=== PATIENT | female | born 1975 | race Caucasian/White ===

== ENCOUNTER 2025-07-07 09:14 | Inpatient (IN) ==
--- NOTE | 2025-06-12 13:55 | PAT Medication Instructions ---
Medication Instructions Date of Service June 12, 2025 Home Medications albuterol 90 mcg/actuation aerosol inhaler 90 mcg inhalation Q2H PRN Shortness Of Breath Or Wheezing atorvastatin 20 mg tablet (Lipitor) 20 mg PO HS budesonide 160 mcg-glycopyr 9 mcg-formot 4.8 mcg/actuation HFA inhaler (Breztri Aerosphere) 2 inh inhalation Q12H duloxetine 30 mg capsule,delayed release 30 mg PO HS duloxetine 60 mg capsule,delayed release 60 mg PO HS hydroxychloroquine 200 mg tablet 200 mg PO BID metformin 500 mg tablet,extended release 24 hr 500 mg PO QPM methocarbamol 750 mg tablet 750 mg PO TID PRN muscle spasms metoprolol tartrate 50 mg tablet 100 mg PO BID montelukast 10 mg tablet (Singulair) 10 mg PO HS omeprazole 40 mg capsule,delayed release 40 mg PO QPM tezepelumab-ekko 210 mg/1.91 mL (110 mg/mL) subcutaneous pen injector (Tezspire) 210 mg subcut MONTHLY tirzepatide 12.5 mg/0.5 mL subcutaneous pen injector (Mounjaro) 12.5 mg subcut WK tramadol 50 mg tablet 50 mg PO BID PRN Pain trazodone 50 mg tablet 50 mg PO HS PRN Insomnia ASK your prescriber and surgeon hydroxychloroquine 200 mg tablet 200 mg PO BID tezepelumab-ekko 210 mg/1.91 mL (110 mg/mL) subcutaneous pen injector (Tezspire) 210 mg subcut MONTHLY STOP taking at least 7 days before surgery tirzepatide 12.5 mg/0.5 mL subcutaneous pen injector (Mounjaro) 12.5 mg subcut WK Take morning of surgery With a small sip of water, OTHERWISE NOTHING TO EAT OR DRINK AFTER MIDNIGHT: albuterol 90 mcg/actuation aerosol inhaler 90 mcg inhalation Q2H PRN Shortness Of Breath Or Wheezing (use if needed; please bring with you to hospital day of surgery if possible) budesonide 160 mcg-glycopyr 9 mcg-formot 4.8 mcg/actuation HFA inhaler (Breztri Aerosphere) 2 inh inhalation Q12H methocarbamol 750 mg tablet 750 mg PO TID PRN muscle spasms (if needed) metoprolol tartrate 50 mg tablet 100 mg PO BID tramadol 50 mg tablet 50 mg PO BID PRN Pain (if needed) Take evening before surgery albuterol 90 mcg/actuation aerosol inhaler 90 mcg inhalation Q2H PRN Shortness Of Breath Or Wheezing (if needed) atorvastatin 20 mg tablet (Lipitor) 20 mg PO HS budesonide 160 mcg-glycopyr 9 mcg-formot 4.8 mcg/actuation HFA inhaler (Breztri Aerosphere) 2 inh inhalation Q12H duloxetine 30 mg capsule,delayed release 30 mg PO HS duloxetine 60 mg capsule,delayed release 60 mg PO HS metformin 500 mg tablet,extended release 24 hr 500 mg PO QPM methocarbamol 750 mg tablet 750 mg PO TID PRN muscle spasms (if needed) metoprolol tartrate 50 mg tablet 100 mg PO BID montelukast 10 mg tablet (Singulair) 10 mg PO HS omeprazole 40 mg capsule,delayed release 40 mg PO QPM tramadol 50 mg tablet 50 mg PO BID PRN Pain (if needed) trazodone 50 mg tablet 50 mg PO HS PRN Insomnia (if needed) Other Notes If you have any questions please call us at [phone] or [phone] or [phone] or [phone]
--- NOTE | 2025-06-15 11:48 | Anesthesiology Consultation ---
Date of Service June 15, 2025 Assessment & Plan (1) Encounter for pre-operative examination: Chart Review Chart Review: Acceptable Risk for Surgery (pending surgeon ordered cardio clearance and Holter monitor/stress testing if available) and Patient seen in Pre Admission Testing - Awaiting cardio clearance (06/27/25) ([facility]- Dr Hampton and Dr Bishop); please also obtain 03/2025 Holter monitor (if available) and 2021 stress testing - Check BSG AM DOS - Check test AM DOS - Patient informed by nursing to stop Mounjaro 7 days prior to surgery. Last dose of Mounjaro scheduled 06/28/25. Will be off Mounjaro x 9 days prior to DOS on 07/07/25 Per PAT appt on 06/15/25, no recent illness/disease exposures, illness related symptoms, or recent illness/disease positive tests. Will leave to surgeon's discretion if preop Covid testing needed PCP Clearance letter 06/10/25= "Low to moderate risk" for complications for proposed surgery. "Please see attached note. Cardiac clearance scheduled with cardiology 06/27/25" PCP office visit 06/08/25= "Preoperative examination... Functional capacity >4 METS. According to RCRI, the number of risk factors stratifies the patient to Class I, which carries with it a 0.6% risk of major CV complications...however, the RCRI likely under estimates the patient's true cardiac risk given her history of BMI of 40.5 and hx of severe asthma... these risks along with the risk of perioperative stroke discussed with the patient... patient wishes to proceed... 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 Medication instructions provided according to the PAT guidelines. History Surgery Operation Date: 07/07/25 09:05 Proposed Procedures p L5-S1 Decompression and Fusion - Killian Mckeon DO Height/Weight Height: 5 ft 4 in Weight: 105.9 kg Allergies Allergy/AdvReac Type Severity Reaction Status Date / Time cephalexin [From Keflex] Allergy Severe Anaphylaxis Verified 06/08/25 15:01 clindamycin Allergy Severe Anaphylaxis Verified 06/08/25 15:01 COVID-19 (SARS-CoV-2) Allergy Severe Anaphylaxis Verified 06/08/25 15:01 vaccine, shannon doxycycline Allergy Severe Anaphylaxis Verified 06/08/25 15:01 rashmi Allergy Severe Anaphylaxis Verified 06/08/25 15:01 papaya Allergy Severe Anaphylaxis Verified 06/08/25 15:01 Penicillins Allergy Severe Anaphylaxis Verified 06/08/25 15:01 alvin Allergy Severe Anaphylaxis Verified 06/08/25 15:01 sulfamethoxazole Allergy Severe Anaphylaxis Verified 06/08/25 15:01 [From Bactrim] sunflower seed Allergy Severe Anaphylaxis Verified 06/08/25 15:01 tree nut Allergy Severe Anaphylaxis Verified 06/08/25 15:01 trimethoprim [From Bactrim] Allergy Severe Anaphylaxis Verified 06/08/25 15:01 chlorhexidine Allergy Intermediate Redness, Verified 06/08/25 15:01 Swelling, Blisters furosemide [From Lasix] Allergy Intermediate Lips Verified 06/08/25 15:01 Swelling, Blisters in Mouth Additional Notes: Surgeon informed of chlorhexidine allergy- will leave to surgeon's discretion regarding preop cleaning/prepping instructions Medications Home Medications Medication Instructions Recorded Confirmed Last Taken albuterol 90 mcg/actuation aerosol 90 mcg inhalation Q2H PRN 06/08/25 06/08/25 Unknown inhaler Shortness Of Breath Or Wheezing atorvastatin 20 mg tablet (Lipitor) 20 mg PO HS 06/08/25 06/08/25 Unknown budesonide 160 mcg-glycopyr 9 2 inh inhalation Q12H 06/08/25 06/08/25 Unknown mcg-formot 4.8 mcg/actuation HFA inhaler (Breztri Aerosphere) duloxetine 30 mg capsule,delayed 30 mg PO HS 06/08/25 06/08/25 Unknown release duloxetine 60 mg capsule,delayed 60 mg PO HS 06/08/25 06/08/25 Unknown release hydroxychloroquine 200 mg tablet 200 mg PO BID 06/08/25 06/08/25 Unknown metformin 500 mg tablet,extended 500 mg PO QPM 06/08/25 06/08/25 Unknown release 24 hr methocarbamol 750 mg tablet 750 mg PO TID PRN muscle spasms 06/08/25 06/08/25 Unknown metoprolol tartrate 50 mg tablet 100 mg PO BID 06/08/25 06/08/25 Unknown montelukast 10 mg tablet 10 mg PO HS 06/08/25 06/08/25 Unknown (Singulair) omeprazole 40 mg capsule,delayed 40 mg PO QPM 06/08/25 06/08/25 Unknown release tezepelumab-ekko 210 mg/1.91 mL 210 mg subcut MONTHLY 06/08/25 06/08/25 05/31/25 (110 mg/mL) subcutaneous pen injector (Tezspire) tirzepatide 12.5 mg/0.5 mL 12.5 mg subcut WK 06/08/25 06/08/25 06/07/25 subcutaneous pen injector (Mounjaro) tramadol 50 mg tablet 50 mg PO BID PRN Pain 06/08/25 06/08/25 Unknown trazodone 50 mg tablet 50 mg PO HS PRN Insomnia 06/08/25 06/08/25 Unknown Past Medical History Medical History (Updated 06/16/25 @ 09:25 by Breann Taveras PA-C) Acid reflux well controlled and stable Asthma [facility] - prn albuterol inhaler - Beztri/Tezspire breathing stable and well controlled Diabetes mellitus, type 2 Oral/Weekly Injectable Family history of cardiac disorder Brother - hx of HOCM Sister- CABG at age 45 Patient follows routinely with cardio (no current CAD or HOCM) History of lipoma chest - excised x5 HLD (hyperlipidemia) Per PCP records Hypertension Keratoconus of both eyes Follows with [facility] Lupus (systemic lupus erythematosus) [facility] - stable Migraines "very few" Multiple drug allergies Multiple food allergies Teeth grinding HS mouth splint Work related injury DOI 08/17/24 - reason for procedure 07/07/25 Exercise / Class Metabolic Activity II 4-5 Yardwork/Stairs/Walk up hill (one flight of stairs - no chest pain or SOB ; limited activities due to back pain ) Past Surgical History Surgical History History of arthroscopy of left knee History of section x1 History of cholecystectomy 01/2024 History of colonoscopy History of eye surgery Left - Cross linking History of local excision of skin lesion x5 lipoma chest wall 07/2023 History of wisdom tooth extraction Past Anesthesia History No Hx of Anesthesia Complications (with exception to remote history of high temperature 4-5 days post op from (had epidural)- possible incision infection ) and No Family Hx of Anesthesia Complications History of PONV No Hx of PONV and Hx of Motion Sickness Social History Smoking Status: Never smoker Do You Dip or Chew Tobacco: No Hx Alcohol Use: No Hx Substance Use: No substance use type: does not use Review of Systems - Hx of sleep study- passed sleep study with no definitive KATY Patient denies chest pain, shortness of breath, dyspnea on exertion, cough, wheezing, palpitations. No hx of seizures, stroke, NE. No hx of blood clots or blood transfusions Physical Exam Vital Signs VITALS BP 126/81 P 75 TEMP 97.4 SP02 100% RESP 16 Constitutional no acute distress ENMT Mouth: no TMJ clicking Thyromental Distance: > or= 3.5 Finger Breadths (3.5) Mallampati Class: I Missing molars Neck neck extension not limited Respiratory normal respiratory effort; no respiratory distress Auscultation: lungs clear to auscultation bilaterally; no wheezes Cardiovascular Rate/Rhythm: regular rate and regular rhythm Heart Sounds: no murmur Vessels: no carotid bruit Musculoskeletal Spine: no pain with cervical ROM Extremities: extremities normal to inspection Psychiatric Orientation: alert Lab Results Anesthesia Preop Results Results Anesthesia Widget: WBC 9.65 K/ul (4.8-10.8) 06/15/25 Hgb 12.7 g/dl (12.0-16.0) 06/15/25 Hct 37.1 % (37.0-47.0) 06/15/25 Plt 300 K/uL (130-400) 06/15/25 Na 141 mmol/L (136-145) 06/15/25 K 3.9 mmol/L (3.5-5.1) 06/15/25 Cl 105 mmol/L (98-107) 06/15/25 CO2 29 mmol/L (21-32) 06/15/25 BUN 8 mg/dl (6-23) 06/15/25 Creat 0.79 mg/dl (0.6-1.2) 06/15/25 Glucose Level 91 mg/dl (70-99(Fasting)) 06/15/25 PT 10.5 Seconds (9.0-12.0) 06/15/25 PTT 27 Seconds (21-31) 06/15/25 INR 1.0 (0.9-1.1) 06/15/25 HA1c 5.3 % (4.5-5.6) 06/15/25 Urine Color Yellow 06/15/25 Urine Appearance Clear (Clear) 06/15/25 Urine pH 8.0 (4.5-7.5) H 06/15/25 Urine Specific Sharon 1.013 (1.000-1.030) 06/15/25 Urine Protein Negative (Negative) 06/15/25 Urine Glucose (UA) Negative (Negative) 06/15/25 Urine Ketones Negative (Negative) 06/15/25 Urine Blood Negative (Negative) 06/15/25 Urine Nitrite Negative (Negative) 06/15/25 Urine Bilirubin Negative (Negative) 06/15/25 Urine Urobilinogen Negative (Negative) 06/15/25 Urine Leukocyte Esterase 3+ (Negative) H 06/15/25 Urine WBC (Auto) 11-20 /hpf (0-5) H 06/15/25 Urine RBC (Auto) 6-10 /hpf (0-2) H 06/15/25 Urine Hyaline Casts (Auto) 0-2 /lpf (0-2) 06/15/25 Urine Epithelial Cells (Auto) 6-10 /hpf (0-2) H 06/15/25 Urine Bacteria (Auto) 1+ (None Seen) H 06/15/25 Blood Type A Positive 06/15/25 Antibody Screen NEGATIVE 06/15/25 Testing Laboratory Results Abnormal UA- urine culture pending- surgeon's office informed- will leave to surgeon's discretion with how to proceed Electrocardiogram Date: 06/15/25 Findings: + NSR @ (75bpm) Nonspecific T wave abnormality Chest X-Ray Date: 06/15/25 Findings: + NAD FINDINGS: Heart size and pulmonary vasculature are normal. Lungs are hyperexpanded. No consolidation or pleural effusion. Echocardiogram Date: 04/19/25 EF: 55-60% LV Function: normal Other Findings: no LVH Valvular Disease: + no significant valvular disease Normal RV size and function
[2025-07-07] MEDS ORDERED: Nursing to Pharmacy Communication SCH ×2 (09:15→21:30)
[2025-07-07] MEDS: LR 15ML/HR IV SCH (09:39)
[2025-07-07] MEDS: VANCOMYCIN HCL 1,500 MG in SODIUM CHLORIDE 0.9% 500 ML IV SCH ×2 (09:39→22:58)
[2025-07-07] MEDS: LR 60ML/HR IV SCH (09:43)
[2025-07-07] MEDS: GABAPENTIN 900 MG DOSE PO SCH (10:01)
[2025-07-07] MEDS ORDERED: ATROPINE SULFATE 0.1 MG/ML 10ML SYR IV PRN (10:29)
[2025-07-07] MEDS ORDERED: DROPERIDOL 5 MG/2 ML VIAL IV PRN (10:29)
[2025-07-07] MEDS: ALBUT/IPRATROP 3MG/0.5MG NEB 3 ML VIAL NEB STA (10:33)
[2025-07-07] MEDS ORDERED: DEXAMETHASONE SOD INJ 4 MG/ML VIAL ONE (10:38)
[2025-07-07] MEDS ORDERED: PROPOFOL IV EMULSION 10 MG/ML 20 ML VIAL IV ONE (10:38)
[2025-07-07] MEDS ORDERED: ROCURONIUM BROMIDE 10 MG/ML 5 ML VIAL IV ONE (10:38)
[2025-07-07] MEDS ORDERED: ONDANSETRON INJ 2 MG/ML 2 ML VIAL ONE (10:38)
[2025-07-07] MEDS ORDERED: LIDOCAINE 2% 2 ML VIAL/AMP(20MG/ML) INFIL ONE (10:38)
[2025-07-07] MEDS ORDERED: MIDAZOLAM HCL 1 MG/ML 2ML VIAL ONE (10:39)
--- NOTE | 2025-07-07 10:45 | History & Physical Bridge Note ---
Date of Service July 07, 2025 History & Physical Bridge Note I have examined the patient, reviewed the History & Physical and in the interval since the performance of the History & Physical I have noted the following changes of clinical significance: no changes noted
--- NOTE | 2025-07-07 10:46 | History & Physical Report ---
Date of Service July 07, 2025 Assessment & Plan (1) Lumbosacral spondylosis with radiculopathy: Plan: L5-S1 decompression and fusion History of Present Illness Chief Complaint: Back and leg pain Primary Care Provider: Starla Chan, GRACE-C This is a 49-year-old female presents chronic persistent back and leg pain after failing course of nonoperative care she is here for surgical intervention. Allergies Allergy/AdvReac Type Severity Reaction Status Date / Time cephalexin [From Keflex] Allergy Severe Anaphylaxis Verified 07/07/25 09:35 clindamycin Allergy Severe Anaphylaxis Verified 07/07/25 09:35 COVID-19 (SARS-CoV-2) Allergy Severe Anaphylaxis Verified 07/07/25 09:35 vaccine, shannon doxycycline Allergy Severe Anaphylaxis Verified 07/07/25 09:35 rashmi Allergy Severe Anaphylaxis Verified 07/07/25 09:35 papaya Allergy Severe Anaphylaxis Verified 07/07/25 09:35 Penicillins Allergy Severe Anaphylaxis Verified 07/07/25 09:35 alvin Allergy Severe Anaphylaxis Verified 07/07/25 09:35 sulfamethoxazole Allergy Severe Anaphylaxis Verified 07/07/25 09:35 [From Bactrim] sunflower seed Allergy Severe Anaphylaxis Verified 07/07/25 09:35 tree nut Allergy Severe Anaphylaxis Verified 07/07/25 09:35 trimethoprim [From Bactrim] Allergy Severe Anaphylaxis Verified 07/07/25 09:35 chlorhexidine Allergy Intermediate Redness, Verified 07/07/25 09:35 Swelling, Blisters furosemide [From Lasix] Allergy Intermediate Lips Verified 07/07/25 09:35 Swelling, Blisters in Mouth Home Medications Medication Instructions Recorded Confirmed Type albuterol 90 mcg/actuation aerosol 90 mcg inhalation Q2H PRN 06/08/25 07/07/25 History inhaler Shortness Of Breath Or Wheezing atorvastatin 20 mg tablet (Lipitor) 20 mg PO HS 06/08/25 07/07/25 History budesonide 160 mcg-glycopyr 9 2 inh inhalation Q12H 06/08/25 07/07/25 History mcg-formot 4.8 mcg/actuation HFA inhaler (Breztri Aerosphere) duloxetine 30 mg capsule,delayed 30 mg PO HS 06/08/25 07/07/25 History release duloxetine 60 mg capsule,delayed 60 mg PO HS 06/08/25 07/07/25 History release hydroxychloroquine 200 mg tablet 200 mg PO BID 06/08/25 07/07/25 History metformin 500 mg tablet,extended 500 mg PO QPM 06/08/25 07/07/25 History release 24 hr methocarbamol 750 mg tablet 750 mg PO TID PRN muscle spasms 06/08/25 07/07/25 History metoprolol tartrate 50 mg tablet 100 mg PO BID 06/08/25 07/07/25 History montelukast 10 mg tablet 10 mg PO HS 06/08/25 07/07/25 History (Singulair) omeprazole 40 mg capsule,delayed 40 mg PO QPM 06/08/25 07/07/25 History release tezepelumab-ekko 210 mg/1.91 mL 210 mg subcut MONTHLY 06/08/25 06/08/25 History (110 mg/mL) subcutaneous pen injector (Tezspire) tirzepatide 12.5 mg/0.5 mL 12.5 mg subcut WK 06/08/25 06/08/25 History subcutaneous pen injector (Mounjaro) tramadol 50 mg tablet 50 mg PO BID PRN Pain 06/08/25 07/07/25 History trazodone 50 mg tablet 50 mg PO HS PRN Insomnia 06/08/25 07/07/25 History Past Med/Surg History Problem List (Updated 07/07/25 @ 10:46 by Killian Mckeon DO) Lumbosacral spondylosis with radiculopathy Encounter for pre-operative examination Medical History (Updated 07/07/25 @ 10:46 by Killian Mckeon DO) HLD (hyperlipidemia) Per PCP records Family history of cardiac disorder Brother - hx of HOCM Sister- CABG at age 45 Patient follows routinely with cardio (no current CAD or HOCM) Teeth grinding HS mouth splint Multiple drug allergies Multiple food allergies Lupus (systemic lupus erythematosus) [facility] - stable Work related injury DOI 08/17/24 - reason for procedure 07/07/25 History of lipoma chest - excised x5 Acid reflux well controlled and stable Diabetes mellitus, type 2 Oral/Weekly Injectable Keratoconus of both eyes Follows with [facility] Migraines "very few" Hypertension Asthma [facility] - prn albuterol inhaler - Beztri/Tezspire breathing stable and well controlled Surgical History History of local excision of skin lesion x5 lipoma chest wall 07/2023 History of wisdom tooth extraction History of arthroscopy of left knee History of section x1 History of cholecystectomy 01/2024 History of colonoscopy History of eye surgery Left - Cross linking Social History Smoking Status: Never smoker Second Hand Exposure: No; Do You Dip or Chew Tobacco: No; Tobacco Cessation Education Requested by Patient: No Hx Alcohol Use: No Hx Substance Use: No Preferred Language: Ukrainian Communication Ability: Effective Heavy Equipment Service Technician Required: No Beliefs That Will Affect Care: None Current Living Situation: Other Current Living Situation Comment: Daughter Other Information That Helps Us Care for You: No Feels Safe at Home: Yes Safety Concerns: Feels Safe At This Time Assistive Devices: Glasses and Other Assistive Devices Comment: Mouth splint HS Physical Exam Physical Exam: Patient is alert and oriented Heart rate and rhythm Lungs clear Results & Data Results & Data Vital Signs (Past 12 Hours) Vital Signs Temp Pulse Resp BP Pulse Ox O2 Del Method 07/07/25 10:33 70 16 100 Room Air 07/07/25 09:47 36.6 C 76 20 137/84 99 Room Air
[2025-07-07] MEDS ORDERED: HYDROmorphone INJ 2 MG/ML SYR/VIAL ONE (11:46)
[2025-07-07] MEDS ORDERED: PHENYLEPHRINE 100MCG/ML 5ML SYR ONE (11:58)
[2025-07-07] MEDS ORDERED: SUGAMMADEX SODIUM 200 MG/2 ML VIAL IV ONE (12:35)
[2025-07-07] MEDS: FLOSEAL HEMOSTATIC MATRIX 10ML TOP ONE (12:38)
[2025-07-07] MEDS: BUPIVACAINE/EPINEPHRINE 0.25% 1:200,000 30 ML VIAL ONE (12:47)
[2025-07-07] MEDS: ceFAZolin 330 MG/ML 1 GM VIAL ONE ×2 (12:49)
--- NOTE | 2025-07-07 12:49 | Operative Report ---
Post Operative Report Pre & Post Diagnosis Operation Date: 07/07/25 10:55 Pre-Op Diagnosis: #1 lumbar spondylolisthesis with radiculopathy #2 lumbar disc herniation with radiculopathy #3 lumbosacral spondylosis with radiculopathy Post-Op Diagnosis: Same I identified the patient and participated in the time-out.: Yes Procedure Operation Date: 07/07/25 10:55 Actual Procedures #1 lumbar decompression with bilateral medial facetectomies and foraminotomies L5-S1. #2 posterior spinal fusion L5-S1. #3 placed to posterior instrumentation L5-S1 using camber. #4 interbody fusion L5-S1. #5 placement Spira 13 x 26 mm x 2 at L5-S1. #6 placement locally harvested morselized autograft and posterior gutters. #7 placement of Proteus combined with Koros in the posterior lateral gutters and os design interbody space. #8 application of versa wrap over the exposed dura. Surgeon Killian Mckeon, DO Steeler Calvin Chandler Estimated Blood Loss 50 Findings See Below The patient is 5 foot 4 weighing over 103 kg with a BMI in excess of 39. The patient's body habitus did contribute to significant technical difficulty with positioning exposure and the procedure itself at least 50% increased operative time. I am recommending a modifier 22. Specimens None Indications This is a 49-year-old female who presents primary diagnosis after failing course of nonoperative care she is here for surgical invention. Description of Procedure Patient was met with identified informed consent obtained. Patient was then taken to the operative suite underwent a patient placed in a prone position on the Raymond table Dr. Marty luther. All bony promises well-padded eyes inspected to ensure no external pressure placed upon them. This point lumbar spine was prepped and draped in normal sterile fashion. Sharp dissection with the assistance of Bovie cautery performed down to and exposing the lamina transverse processes of L5-S1. Obvious bilateral pars defect identified. A complete laminectomy of L5 was then performed. Including bilateral medial facetectomies and foraminotomies as well as excision of the disc herniation at L4-5 S1 on the left. Pedicle screws were then placed in L5-S1 bilaterally with assistance of fluoroscopy and the purposes jhonathan contoured and placed bilaterally. By way of transforaminal approach and a right a discectomy of L5-S1 was performed endplates corrected to subcortical bleeding bone and a 13 x 26 mm Spira cage tapped into position. Then proceeded to the left transforaminal region. Then discectomy performed. Endplates coated to subcortical mean bone and a second 13 x 26 mm Spira cage tapped into position. Please note both cages were packed with loss of design bone graft. The rods were then compressed locked into final position bilaterally. The transverse processes of L5-S1 burred to subcortical bone. Koros combined with Proteus and locally harvested morselized allograft placed in the posterior gutters. Versa wrap placed with exposed dura. 15 round GUANACO drain inserted. The incision was then closed with 1 Vicryl the fascia 2-0 Vicryl subcutaneously and 4 Monocryl for final skin closure. Steri-Strips and sterile dressing placed. Patient waken taken to PACU stable condition. Please note Calvin record was present of the entire procedure and found the patient positioning complex portion of the surgery and final skin closure. I attest to the content of the Intraoperative Record and any orders documented therein. Any exceptions are noted below.
--- NOTE | 2025-07-07 12:54 | Fluoroscopy Report ---
FL lumbar spine 2-3V CLINICAL HISTORY: L5-S1 D F COMPARISON STUDY: None FLUOROSCOPY TIME: 22 seconds FLUOROSCOPY IMAGES: 3 EXPOSURE DOSE: 18 mGy FINDINGS: Fluoroscopy was provided for L5-S1 instrumented fusion. IMPRESSION: Intraoperative fluoroscopy. ACT 112: Negative or not required by law. Electronically signed by: Basilio Hernandez M.D. 07/07/2025 12:53 PM
[2025-07-07] MEDS: HYDROmorphone INJ 2 MG/ML SYR/VIAL IV PRN (13:25)
--- NOTE | 2025-07-07 13:31 | Anesthesiology Progress Note ---
Date of Service July 07, 2025 Anesthesia Post Procedure Vital Signs Vital Signs: Temp Pulse Resp BP Pulse Ox O2 Del Method O2 Flow Rate 07/07/25 13:25 78 15 124/91 100 Oxymask 07/07/25 13:15 80 16 108/81 100 Oxymask 07/07/25 13:06 36.5 C 81 12 125/69 98 Oxymask 07/07/25 10:33 70 16 100 Room Air 07/07/25 09:47 36.6 C 76 20 137/84 99 Room Air Pain Intensity Back: Pain Intensity: 5 Transfer of Care Handoff Completed per policy Notes Mental Status: alert / awake / arousable Patient Amnestic to Procedure: Yes Nausea / Vomiting: adequately controlled Pain: adequately controlled Airway Patency, RR, SpO2: stable & adequate BP & HR: stable & adequate Hydration State: stable & adequate Anesthetic Complications: no major complications apparent
--- NOTE | 2025-07-07 13:43 | Anesthesiology Progress Note ---
Date of Service July 07, 2025 Anesthesia Post Procedure Vital Signs Vital Signs: Temp Pulse Resp BP Pulse Ox O2 Del Method O2 Flow Rate 07/07/25 13:35 76 14 124/77 100 Oxymask 4 07/07/25 13:25 78 15 124/91 100 Oxymask 11 07/07/25 13:15 80 16 108/81 100 Oxymask 11 07/07/25 13:06 36.5 C 81 12 125/69 98 Oxymask 11 07/07/25 10:33 70 16 100 Room Air 07/07/25 09:47 36.6 C 76 20 137/84 99 Room Air Pain Intensity Back: Pain Intensity: 5 Transfer of Care Handoff Completed per policy Notes Mental Status: alert / awake / arousable and participated in evaluation Patient Amnestic to Procedure: Yes Nausea / Vomiting: adequately controlled Pain: adequately controlled Airway Patency, RR, SpO2: stable & adequate BP & HR: stable & adequate Hydration State: stable & adequate Anesthetic Complications: no major complications apparent and Pt Satisfied with anesthetic care
[2025-07-07] MEDS ORDERED: MAGNESIUM HYDROXIDE SUSP 30 ML UDC PO PRN (14:20)
[2025-07-07] MEDS ORDERED: HYDROmorphone INJ 0.5 MG/0.5 ML SYR IV PRN (14:20)
[2025-07-07] MEDS ORDERED: VANCOMYCIN CONSULT ACTIVE PRN (14:20)
[2025-07-07] MEDS ORDERED: ONDANSETRON INJ 2 MG/ML 2 ML VIAL IV PRN (14:20)
[2025-07-07] MEDS ORDERED: ACETAMINOPHEN 1,000 MG/100 ML VIAL IV PRN (14:20)
[2025-07-07] MEDS ORDERED: ALUMINUM/MAGNESIUM SUSP 30 ML UDC PO PRN (14:20)
[2025-07-07] MEDS ORDERED: HYDROmorphone INJ 1 MG/ML SYRINGE IV PRN (14:20)
[2025-07-07] MEDS ORDERED: FAMOTIDINE 20 MG TAB PO PRN (14:20)
[2025-07-07] MEDS ORDERED: diphenhydrAMINE Capsule 25 MG CAP PO PRN (14:20)
[2025-07-07] MEDS ORDERED: PROMETHAZINE 12.5 MG/50.5 ML BAG IV PRN (14:20)
[2025-07-07] MEDS ORDERED: ONDANSETRON 4 MG OD TAB PO PRN (14:20)
[2025-07-07] MEDS ORDERED: SOD PHOSPHATE/SOD BIPHOSPHATE ENEMA 132 ML BTL PR PRN (14:20)
[2025-07-07] MEDS ORDERED: DO NOT ADMINISTER PNEUMOCOCCAL VACCINE PRN (14:20)
[2025-07-07] MEDS ORDERED: LORazepam 0.5 MG TAB PO PRN (14:20)
[2025-07-07] MEDS ORDERED: NALOXONE HCL 0.4 MG/1 ML VIAL/CARP IV PRN (14:20)
[2025-07-07] MEDS ORDERED: METHOCARBAMOL 750 MG TABLET PO PRN (14:20)
[2025-07-07] MEDS ORDERED: ACETAMINOPHEN 500 MG TAB PO PRN (14:20)
[2025-07-07] MEDS ORDERED: DO NOT ADMINISTER FLU VACCINE PRN (14:20)
[2025-07-07] MEDS ORDERED: PHARMACY GLYCEMIC MGMT CONSULT PRN (14:20)
[2025-07-07] MEDS ORDERED: METOCLOPRAMIDE HCL INJ 5 MG/ML 2 ML VIAL IV PRN (14:20)
--- NOTE | 2025-07-07 14:34 | Pharmacy Report ---
Pharmacy Glycemic Short Note 2 - Date of Service July 07, 2025 - Glycemic Short BSG Results (Last 24 hours): 07/07/25 07/07/25 09:36 13:15 POC Glucose 104 H 90 OUTPATIENT ANTIDIABETIC REGIMEN: * metformin 500 mg daily PM ASSESSMENT: * 49 year old s/p surgery, POD 0 - pharmacy consulted for glycemic management. Postop BSG 90 mg/dL - will start novolog SSI. Ordered IV dexamethasone ongoing starting tomorrow. May need to tighten parameters then. PLAN FOR INPATIENT GLYCEMIC CONTROL: * Hold outpatient oral diabetes medications * Basal insulin * Lantus - hold * Bolus insulin * NovoLog per scale ACHS or Q6hrs while NPO * Goal Range: Low 110 mg/dL - High 140 mg/dL * Correction Factor: 30 mg/dL/unit * Nutritional / Prandial insulin per carb ratio of 1 unit per 15 grams CHO consumed
--- NOTE | 2025-07-07 14:45 | Consultation ---
Date of Consultation July 07, 2025 Assessment & Plan (1) Lumbosacral spondylosis with radiculopathy: (2) S/P lumbar spinal fusion: (3) Diabetes mellitus, type 2: (4) Asthma: (5) Hypertension: (6) HLD (hyperlipidemia): (7) Acid reflux: (8) Lupus (systemic lupus erythematosus): Plan 49 year old female with PMH significant for type 2 diabetes (A1C 5.2% in January 2025), hypertension, hyperlipidemia, SLE, GERD, carotid artery stenosis, severe asthma, migraines, urinary retention (normal PVR on bladder US in Jun 2024), depression/anxiety, and lumbosacral spondylosis with radiculopathy who underwent L5-S1 lumbar decompression and fusion on 07/07/[address] Mckeon. We have been consulted for post operative medical management. Lumbosacral spondylosis with radiculopathy POD#0 L5-S1 lumbar decompression and fusion on 07/07/[address] Mckeon Activity level, pain control, DVT prophylaxis, bowel regimen, wound/drain care per primary team Encourage incentive spirometer Monitor labs in am for acute blood loss anemia (preop Hgb 12.7 and EBL 50mL) PT tomorrow am Type 2 diabetes Home metformin and Mounjaro on hold BSG ACHS and SSI while inpatient Glycemic pharmacy consulted Asthma Home Tezspire on hold Continue inhalers and montelukast Hypertension Continue metoprolol tartrate Hyperlipidemia Continue atorvastatin GERD Continue PPI Lupus Home Plaquenil on hold Depression/anxiety Continue duloxetine and trazodone DVT Prophylaxis: TEDs/SCDs per primary team Code Status: FULL CODE PCP: Starla JHA ([facility]) Disposition: per primary team Patient seen in collaboration with Dr. Bar. Please see addendum. Thank you for this consultation. We will continue to follow this patient with you. [facility] available [facility]05 via the role in [employer] - please don't hesitate to reach out with questions. I spent a total of 60 minutes coordinating, documenting and providing care for this patient excluding time spent in the performance of separately billed services or time spent by another provider/QHP. Supervising Physician Co-Signing Physician Notes Attending addendum: The patient was seen and examined in medical floor She is a status post L5-S1 decompression and fusion Has been feeling much better following the procedure and does not have any numbness and tingling in the legs Denies any other significant symptoms On examination Lying in bed without any acute distress Remains hemodynamically stable Chest was clear to auscultate bilaterally HeartS1-S2, regular Abdomenbenign Extremitiesno edema CNSalert, awake and oriented x 3 no focal sensory or motor deficit appreciated Her preadmission labs, EKG and imaging studies reviewed Remains medically stable following L5-S1 decompression and fusion Monitor her labs and electrolytes Her other significant medical conditions remained stable as above Agree with assessment plan as outlined above by ABHIJEET Adam and take the full responsibility of care in the hospital Dr Sharath Bar History of Present Illness Requesting Physician: Killian Mckeon DO Reason for Consultation: Post operative medical management Attending Physician: Killian Mckeon DO History of Present Illness 49 year old female with PMH significant for type 2 diabetes (A1C 5.2% in January 2025), hypertension, hyperlipidemia, SLE, GERD, carotid artery stenosis, severe asthma, migraines, urinary retention (normal PVR on bladder US in Jun 2024), depression/anxiety, and lumbosacral spondylosis with radiculopathy who underwent L5-S1 lumbar decompression and fusion on 07/07/[address] Mckeon. We have been consulted for post operative medical management. Patient was seen in her inpatient room post operatively. She reports she is doing very well and having minimal pain. She was able to ambulate to the bathroom without difficulty. She denies chest pain, SOB, abdominal pain, N/V, numbness/tingling in BLE. Eating and drinking well. Allergies Allergy/AdvReac Type Severity Reaction Status Date / Time cephalexin [From Keflex] Allergy Severe Anaphylaxis Verified 07/07/25 09:35 clindamycin Allergy Severe Anaphylaxis Verified 07/07/25 09:35 COVID-19 (SARS-CoV-2) Allergy Severe Anaphylaxis Verified 07/07/25 09:35 vaccine, shannon doxycycline Allergy Severe Anaphylaxis Verified 07/07/25 09:35 rashmi Allergy Severe Anaphylaxis Verified 07/07/25 09:35 papaya Allergy Severe Anaphylaxis Verified 07/07/25 09:35 Penicillins Allergy Severe Anaphylaxis Verified 07/07/25 09:35 alvin Allergy Severe Anaphylaxis Verified 07/07/25 09:35 sulfamethoxazole Allergy Severe Anaphylaxis Verified 07/07/25 09:35 [From Bactrim] sunflower seed Allergy Severe Anaphylaxis Verified 07/07/25 09:35 tree nut Allergy Severe Anaphylaxis Verified 07/07/25 09:35 trimethoprim [From Bactrim] Allergy Severe Anaphylaxis Verified 07/07/25 09:35 chlorhexidine Allergy Intermediate Redness, Verified 07/07/25 09:35 Swelling, Blisters furosemide [From Lasix] Allergy Intermediate Lips Verified 07/07/25 09:35 Swelling, Blisters in Mouth Home Medications Medication Instructions Recorded Confirmed Type albuterol 90 mcg/actuation aerosol 90 mcg inhalation Q2H PRN 06/08/25 07/07/25 History inhaler Shortness Of Breath Or Wheezing atorvastatin 20 mg tablet (Lipitor) 20 mg PO HS 06/08/25 07/07/25 History budesonide 160 mcg-glycopyr 9 2 inh inhalation Q12H 06/08/25 07/07/25 History mcg-formot 4.8 mcg/actuation HFA inhaler (Breztri Aerosphere) duloxetine 30 mg capsule,delayed 30 mg PO HS 06/08/25 07/07/25 History release duloxetine 60 mg capsule,delayed 60 mg PO HS 06/08/25 07/07/25 History release hydroxychloroquine 200 mg tablet 200 mg PO BID 06/08/25 07/07/25 History metformin 500 mg tablet,extended 500 mg PO QPM 06/08/25 07/07/25 History release 24 hr methocarbamol 750 mg tablet 750 mg PO TID PRN muscle spasms 06/08/25 07/07/25 History metoprolol tartrate 50 mg tablet 100 mg PO BID 06/08/25 07/07/25 History montelukast 10 mg tablet 10 mg PO HS 06/08/25 07/07/25 History (Singulair) omeprazole 40 mg capsule,delayed 40 mg PO QPM 06/08/25 07/07/25 History release tezepelumab-ekko 210 mg/1.91 mL 210 mg subcut MONTHLY 06/08/25 06/08/25 History (110 mg/mL) subcutaneous pen injector (Gtzspire) tirzepatide 12.5 mg/0.5 mL 12.5 mg subcut WK 06/08/25 06/08/25 History subcutaneous pen injector (Brando) tramadol 50 mg tablet 50 mg PO BID PRN Pain 06/08/25 07/07/25 History trazodone 50 mg tablet 50 mg PO HS PRN Insomnia 06/08/25 07/07/25 History Patient History Medical History (Updated 07/07/25 @ 14:48 by ABHIJEET Remy) Encounter for pre-operative examination Family history of cardiac disorder Brother - hx of HOCM Sister- CABG at age 45 Patient follows routinely with cardio (no current CAD or HOCM) Teeth grinding HS mouth splint Multiple drug allergies Multiple food allergies Work related injury DOI 08/17/24 - reason for procedure 07/07/25 History of lipoma chest - excised x5 Keratoconus of both eyes Follows with [facility] Migraines "very few" Surgical History (Updated 07/07/25 @ 14:48 by ABHIJEET Remy) History of local excision of skin lesion x5 lipoma chest wall 07/2023 History of wisdom tooth extraction History of arthroscopy of left knee History of section x1 History of cholecystectomy 01/2024 History of colonoscopy History of eye surgery Left - Cross linking Social History Smoking Status: Never smoker Second Hand Exposure: No; Do You Dip or Chew Tobacco: No; Tobacco Cessation Education Requested by Patient: No Hx Alcohol Use: No Hx Substance Use: No Preferred Language: Maltese Communication Ability: Effective Outside Residential Sales Professional Required: No Beliefs That Will Affect Care: None Current Living Situation: Other Current Living Situation Comment: Daughter Other Information That Helps Us Care for You: No Feels Safe at Home: Yes Safety Concerns: Feels Safe At This Time Assistive Devices: Glasses and Other Assistive Devices Comment: Mouth splint HS Review of Systems Review of Systems: All systems reviewed & are unremarkable except as noted in HPI & below Physical Exam Physical Exam: General/Psych: WD/WN, sitting up in bed, NAD, conversing easily Head: normocephalic, atraumatic Eyes: normal inspection, PERRL, conjunctivae pink ENT: external ear and nose normal, oropharynx normal Neck: normal visual inspection, trachea midline Respiratory: normal respiratory effort, lungs clear to auscultation, no wheeze/rales/rhonchi, no accessory muscle use Cardiovascular: regular rate and rhythm, no murmur/rub/gallop, no JVD Extremities: no cyanosis or clubbing, normal peripheral pulses, no BLE edema, sensation intact BLE Abdomen/GI: normal bowel sounds, soft, nontender Neurologic/MSK: A+Ox3, motor strength 5/5, moves all extremities Skin: no rashes, normal color, warm and dry, island dressing c/d/i, GUANACO drain with sanguinous output Results & Data Vital Signs (Past 12 Hours) Vital Signs Temp Pulse Pulse Resp BP Pulse Ox O2 Del Method 07/07/25 14:33 36.6 C 79 18 115/75 100 Nasal Cannula 07/07/25 14:14 36.6 C 77 20 118/62 100 Nasal Cannula 07/07/25 13:55 74 12 135/81 99 Nasal Cannula 07/07/25 13:45 37.0 C 74 14 112/67 100 Nasal Cannula 07/07/25 13:35 76 14 124/77 100 Oxymask 07/07/25 13:25 78 15 124/91 100 Oxymask 07/07/25 13:15 80 16 108/81 100 Oxymask 07/07/25 13:06 36.5 C 81 12 125/69 98 Oxymask 07/07/25 10:33 70 16 100 Room Air 07/07/25 09:47 36.6 C 76 20 137/84 99 Room Air O2 Flow Rate 07/07/25 14:33 2 07/07/25 14:14 2 07/07/25 13:55 3 07/07/25 13:45 3 07/07/25 13:35 4 07/07/25 13:25 11 07/07/25 13:15 11 07/07/25 13:06 11 07/07/25 10:33 07/07/25 09:47
[2025-07-07] MEDS ORDERED: ALBUTEROL HFA 8 GM INHALER INH PRN (14:46)
[2025-07-07] MEDS ORDERED: DEXTROSE 50% 50 ML SYRINGE IV PRN (15:00)
[2025-07-07] MEDS ORDERED: GLUCAGON FOR INJ 1 MG VIAL SQ PRN (15:00)
[2025-07-07] MEDS ORDERED: CARBOHYDRATES FOR HYPOGLYCEMIA PO PRN (15:00)
[2025-07-07] MEDS ORDERED: GLUCOSE 10 TAB/TUBE PO PRN (15:00)
[2025-07-07] MEDS ORDERED: GLUCOSE 40% GEL 15 GM TUBE PO PRN (15:00)
[2025-07-07] MEDS: INSULIN ASPART PER UNIT CHARGE SC SCH (17:11)
[2025-07-07] MEDS: DOCUSATE SODIUM/SENNA 50/8.6MG TAB PO SCH (20:32)
[2025-07-07] MEDS: ATORVASTATIN 20 MG TAB PO SCH (20:32)
[2025-07-07] MEDS: MONTELUKAST SODIUM 10 MG TABLET PO SCH (20:33)
[2025-07-07] MEDS: METOPROLOL TARTRATE 100 MG TAB PO SCH (20:36)
[2025-07-07] MEDS ORDERED: VANCOMYCIN HCL 1,500 MG in SODIUM CHLORIDE 0.9% 500 ML IV SCH (23:00)
[2025-07-08] MEDS: POLYETHYLENE (MIRALAX) 17 GM PACK PO SCH (05:50)
[2025-07-08 06:08] LABS: Hematocrit (blood only) 33.6 % (37.0-47.0); Hemoglobin 11.2 g/dl (12.0-16.0); Immature Granulocytes # (auto) 0.08 K/uL (0.01-0.20); Immature Granulocytes % (auto) 0.5 %; Mean Corpuscular Hemoglobin 30.4 pg (25.0-34.0); Mean Corpuscular Volume 91.1 fL (80.0-100.0); Platelet Count 289 K/uL (130-400); RDW Standard Deviation 39.7 fL (36.4-46.3); Red Blood Count 3.69 M/uL (4.20-5.40); White Blood Count 17.30 K/ul (4.8-10.8)
[2025-07-08 06:25] LABS: Anion Gap 7.0 (3-11); Blood Urea Nitrogen 11.0 mg/dl (6-23); Calcium 8.5 mg/dl (8.6-10.3); Carbon Dioxide 27.0 mmol/L (21-32); Chloride 105.0 mmol/L (98-107); Creatinine Clr Calc Pharmacy 90.6 ml/min; Glucose 118.0 mg/dl (70-99(Fasting)); Potassium 4.2 mmol/L (3.5-5.1); Sodium 139.0 mmol/L (136-145)
[2025-07-08] MEDS: dexAMETHasone 8 MG in SYRINGE 0 ML IV SCH (08:13)
[2025-07-08] MEDS: BUDESONIDE/GLYCOPYR/FORMOTEROL INHALER INH SCH (08:13)
[2025-07-08] MEDS: FLUTICASONE FUROATE 200MCG 14 PUFFS/INHALER INH SCH (08:15)
--- NOTE | 2025-07-08 08:18 | Orthopedic Progress Note ---
Date of Service July 08, 2025 Assessment & Plan (1) Lumbosacral spondylosis with radiculopathy: Plan: Chills postoperative day 1 status post lumbar decompression and fusion of L5-S1. She is can start physical therapy today. Continue with pain control. Maintain GUANACO drain. DVT prophylaxis is in the form of teds and SCDs. Continue with aggressive bowel regimen. Anticipate discharge home within the next 24 to 48 hours. Admission and Anticipated Discharge Date Admission Date: July 07, 2025 Subjective Karen is postoperative day 1 status post L5-S1 decompression and fusion. She has had an uneventful evening. Pain is controlled. GUANACO drain output left shift is 60 cc. H&H this morning are 11.2 and 33.6 respectively. No other complaints. She has established numbness in her toes that she relates to her lupus symptoms unchanged. Review of Systems Review of Systems: All systems reviewed & are unremarkable except as noted in HPI & below Physical Exam Physical Exam: She is laying in bed in no acute distress Alert and oriented x 3 Lumbar dressing is clean dry intact with functioning GUANACO drain Strength intact bilateral lower extremities Results & Data Vital Signs (Past 12 Hours) Vital Signs Temp Pulse Resp BP Pulse Ox O2 Del Method O2 Flow Rate 07/08/25 07:39 36.5 C 79 18 116/73 97 Room Air 07/08/25 04:33 36.5 C 78 18 111/72 97 Room Air 07/08/25 00:00 36.7 C 86 20 127/82 96 Room Air 07/07/25 20:34 36.6 C 84 20 129/83 98 Room Air 07/07/25 20:20 Nasal Cannula 2
[2025-07-08] MEDS ORDERED: UMECLIDINIUM/VILANTEROL 62.5/25MCG 7 PUFFS/INHALER INH SCH (09:00)
--- NOTE | 2025-07-08 13:58 | Hospitalist Progress Note ---
Date of Service July 08, 2025 Assessment & Plan (1) Lumbosacral spondylosis with radiculopathy: (2) S/P lumbar spinal fusion: (3) Diabetes mellitus, type 2: (4) Asthma: (5) Hypertension: (6) HLD (hyperlipidemia): (7) Acid reflux: (8) Lupus (systemic lupus erythematosus): Plan 49 year old female with PMH significant for type 2 diabetes (A1C 5.2% in January 2025), hypertension, hyperlipidemia, SLE, GERD, carotid artery stenosis, severe asthma, migraines, urinary retention (normal PVR on bladder US in Jun 2024), depression/anxiety, and lumbosacral spondylosis with radiculopathy who underwent L5-S1 lumbar decompression and fusion on 07/07/[address] Mckeon. We have been consulted for post operative medical management. Lumbosacral spondylosis with radiculopathy -POD#1 L5-S1 lumbar decompression and fusion on 07/07/[address] Mckeon -Activity level, pain control, DVT prophylaxis, bowel regimen, wound/drain care per primary team -Encourage incentive spirometer -Monitor labs in am for acute blood loss anemia (preop Hgb 12.7 and EBL 50mL) -PT today Type 2 diabetes -BSG ACHS and SSI while inpatient -Glycemic pharmacy consulted Asthma -Home Tezspire on hold -Continue inhalers and montelukast Hypertension -Continue metoprolol tartrate Hyperlipidemia -Continue atorvastatin GERD -Continue PPI Lupus -Home Plaquenil on hold, resume tomorrow Depression/anxiety -Continue duloxetine and trazodone I spent a total of 45 minutes in direct patient care, including [id number] time with the patient and/or family, reviewing medical records, ordering and reviewing diagnostic tests, and coordinating care with other healthcare provid ers. This time includes: history taking, physical examination, medical decision making, counseling, ECG interpretation, imaging interpretation, lab interpretation, orders, and education, excluding time spent in the performance of separately billed services. Admission and Anticipated Discharge Date Admission Date: July 07, 2025 Subjective Patient seen and examined at bedside. Patient doing well today, feels pain much improved post procedure. Review of Systems Review of Systems: CONSTITUTIONAL: Patient denies fevers, chills, sweats and weight changes. EYES: Patient denies any visual symptoms. EARS, NOSE, AND THROAT: No difficulties with hearing. No symptoms of rhinitis or sore throat. CARDIOVASCULAR: Patient denies chest pains, palpitations, orthopnea and paroxysmal nocturnal dyspnea. RESPIRATORY: No dyspnea on exertion, no wheezing or cough. GI: No nausea, vomiting, diarrhea, constipation, abdominal pain, hematochezia or melena. : No urinary hesitancy or dribbling. No nocturia or urinary frequency. No abnormal urethral discharge. MUSCULOSKELETAL: some lower back muscular pain, left toe tingling NEUROLOGIC: No chronic headaches, no seizures. Patient denies numbness, tingling or weakness. PSYCHIATRIC: Patient denies problems with mood disturbance. No problems with anxiety. ENDOCRINE: No excessive urination or excessive thirst. DERMATOLOGIC: Patient denies any rashes or skin changes. Physical Exam Physical Exam: Gen: A&O 3 NAD HEENT: NCAT, EOMI, not icteric. External ears normal. No rhinorrhea. Moist mucous membranes. Neck: Supple, full range of motion, no observable masses, No meningeal sign. Lungs: No Respiratory distress. CV: RRR, no edema. Abdomen: Soft, nondistended, No rebound tenderness. MSK: No joint swelling, no redness. s/p procedure, walking around, GUANACO drain in place almost filled Skin: No rashes, petechiae, lesions. Normal color per patient. Neuro: Normal Gait, Grossly intact. Psych: Appropriate for situation. Results & Data Results & Data Vital Signs (Past 12 Hours) Vital Signs Temp Pulse Resp BP Pulse Ox O2 Del Method 07/08/25 11:33 36.4 C L 65 16 134/86 100 Room Air 07/08/25 07:39 36.5 C 79 18 116/73 97 Room Air 07/08/25 04:33 36.5 C 78 18 111/72 97 Room Air Laboratory Results -personally reviewed, leukocytosis likely reactive, Hgb downtrending s/p procedure, creatinine stable Medications Administered Atorvastatin Calcium (Atorvastatin 20 Mg Tab) 20 mg PO HS SHIRLEY Stop: 08/06/25 20:59 Last Admin: 07/07/25 20:32 Dose: 20 mg Documented By: HOMER Budesonide/Glycopyrr/Formoterol Fum (Budesonide/Glycopyr/Formoterol Inhaler) 2 ea INH BID SHIRLEY Stop: 08/07/25 08:59 Last Admin: 07/08/25 08:13 Dose: 2 ea Documented By: CHRIS Duloxetine HCl (Duloxetine Hcl 30 Mg Cap) 30 mg PO HS SHIRLEY Stop: 08/06/25 20:59 Last Admin: 07/07/25 20:33 Dose: 30 mg Documented By: HOMER Duloxetine HCl (Duloxetine Hcl 60 Mg Cap) 60 mg PO HS SHIRLEY Stop: 08/06/25 20:59 Last Admin: 07/07/25 20:32 Dose: 60 mg Documented By: HOMER Fluticasone Furoate (Fluticasone Furoate 200mcg 14 Puffs/Inhaler) 1 puffs INH DAILY SHIRLEY Stop: 08/07/25 08:59 Last Admin: 07/08/25 08:15 Dose: 1 puffs Documented By: CHRIS Dexamethasone 8 mg/ Syringe 2 mls @ 1 mls/min IV DAILY SHIRLEY Stop: 07/10/25 09:01 Last Admin: 07/08/25 08:13 Dose: 1 mls/min Documented By: CHRIS Insulin Aspart (Insulin Aspart Per Unit Charge) 0 units SC ACHS SHIRLEY Stop: 08/06/25 16:29 Last Admin: 07/08/25 12:15 Dose: 3 units Documented By: CHRIS Co-signed By: STEFANO Admin: 07/08/25 08:12 Dose: 5 units Documented By: CHRIS Co-signed By: GURJIT Admin: 07/07/25 21:30 Dose: Not Given Documented By: HOMER Co-signed By: MYLENE Admin: 07/07/25 17:11 Dose: 6 units Documented By: ALONSO Co-signed By: STEFANO Metoprolol Tartrate (Metoprolol Tartrate 100 Mg Tab) 100 mg PO BID SHIRLEY Stop: 08/06/25 20:59 Last Admin: 07/08/25 08:14 Dose: 100 mg Documented By: Admin: 07/07/25 20:36 Dose: 100 mg Documented By: HOMER Montelukast Sodium (Montelukast Sodium 10 Mg Tablet) 10 mg PO HS SHIRLEY Stop: 08/06/25 20:59 Last Admin: 07/07/25 20:33 Dose: 10 mg Documented By: HOMER Oxycodone HCl (Oxycodone Hcl Ir 5 Mg Tab (Immediate Release)) 5 - 10 mg PO Q4H PRN PRN Reason: MOD/SEV Pain & Pre PT Stop: 07/21/25 14:19 Last Admin: 07/08/25 11:32 Dose: 10 mg Documented By: Admin: 07/08/25 04:30 Dose: 10 mg Documented By: Admin: 07/08/25 00:27 Dose: 10 mg Documented By: Admin: 07/07/25 20:37 Dose: 10 mg Documented By: Admin: 07/07/25 16:20 Dose: 10 mg Documented By: ALONSO Pantoprazole Sodium (Pantoprazole 40 Mg Tab) 40 mg PO DAILY SHIRLEY Stop: 08/07/25 08:59 Last Admin: 07/08/25 08:14 Dose: 40 mg Documented By: CHRIS Polyethylene Glycol (Polyethylene (Miralax) 17 Gm Pack) 17 gm PO Q6 SHIRLEY Stop: 08/07/25 05:59 Last Admin: 07/08/25 12:16 Dose: 17 gm Documented By: Admin: 07/08/25 05:50 Dose: 17 gm Documented By: HOMER Senna/Docusate Sodium (Docusate Sodium/Senna 50/8.6mg Tab) 2 tab PO HS SHIRLEY Stop: 08/06/25 20:59 Last Admin: 07/07/25 20:32 Dose: 2 tab Documented By: HOMER Tramadol HCl (Tramadol Hcl 50 Mg Tablet) 50 - 100 mg PO Q4H PRN PRN Reason: MOD/SEV Pain & Pre PT Stop: 08/06/25 14:19 Last Admin: 07/08/25 08:25 Dose: 50 mg Documented By: Admin: 07/07/25 23:03 Dose: 100 mg Documented By: HOMER
[2025-07-08 15:49] VITALS: RESP 18
[2025-07-08] MEDS: FLUCONAZOLE 50 MG TAB PO ONE (17:57)
[2025-07-09] MEDS: MELATONIN 3 MG TAB PO PRN (03:05)
[2025-07-09 06:10] LABS: Hematocrit (blood only) 33.3 % (37.0-47.0); Hemoglobin 10.8 g/dl (12.0-16.0); Mean Corpuscular Hemoglobin 30.3 pg (25.0-34.0); Mean Corpuscular Volume 93.3 fL (80.0-100.0); Platelet Count 267 K/uL (130-400); RDW Standard Deviation 40.8 fL (36.4-46.3); Red Blood Count 3.57 M/uL (4.20-5.40); White Blood Count 17.37 K/ul (4.8-10.8)
[2025-07-09 06:31] LABS: Anion Gap 4.0 (3-11); Blood Urea Nitrogen 15.0 mg/dl (6-23); Calcium 8.9 mg/dl (8.6-10.3); Carbon Dioxide 33.0 mmol/L (21-32); Chloride 104.0 mmol/L (98-107); Creatinine Clr Calc Pharmacy 114.3 ml/min; Glucose 118.0 mg/dl (70-99(Fasting)); Potassium 4.2 mmol/L (3.5-5.1); Sodium 141.0 mmol/L (136-145)
[2025-07-09 07:47] VITALS: BP 112/72; PULSE 66; TEMP 97.5; O2SAT 100
--- NOTE | 2025-07-09 09:42 | Discharge Summary ---
Date of Service July 09, 2025 Admission HPI Per Admitting Provider This is a 49-year-old female presents chronic persistent back and leg pain after failing course of nonoperative care she is here for surgical intervention. Principal Diagnosis Lumbar spondylolisthesis with radiculopathy Discharge Data Allergies Allergy/AdvReac Type Severity Reaction Status Date / Time cephalexin [From Keflex] Allergy Severe Anaphylaxis Verified 07/07/25 09:35 clindamycin Allergy Severe Anaphylaxis Verified 07/07/25 09:35 COVID-19 (SARS-CoV-2) Allergy Severe Anaphylaxis Verified 07/07/25 09:35 vaccine, shannon doxycycline Allergy Severe Anaphylaxis Verified 07/07/25 09:35 rashmi Allergy Severe Anaphylaxis Verified 07/07/25 09:35 papaya Allergy Severe Anaphylaxis Verified 07/07/25 09:35 Penicillins Allergy Severe Anaphylaxis Verified 07/07/25 09:35 alvin Allergy Severe Anaphylaxis Verified 07/07/25 09:35 sulfamethoxazole Allergy Severe Anaphylaxis Verified 07/07/25 09:35 [From Bactrim] sunflower seed Allergy Severe Anaphylaxis Verified 07/07/25 09:35 tree nut Allergy Severe Anaphylaxis Verified 07/07/25 09:35 trimethoprim [From Bactrim] Allergy Severe Anaphylaxis Verified 07/07/25 09:35 chlorhexidine Allergy Intermediate Redness, Verified 07/07/25 09:35 Swelling, Blisters furosemide [From Lasix] Allergy Intermediate Lips Verified 07/07/25 09:35 Swelling, Blisters in Mouth Consultations 07/07/25 14:20 Consult Hospitalist Routine Procedures Performed Operation Date: 07/07/25 10:55 Actual Procedures p L5-S1 Decompression and Fusion(Not Applicable) - Killian Mckeon DO Ordered Studies 07/07/25 10:55 FL lumbar spine 2-3V Routine Hospital Course (1) Lumbosacral spondylosis with radiculopathy: Patient underwent lumbar decompression fusion trial as well as taken to orthopedic for postoperative. Postoperatively progressed appropriately. Marked improvement of her leg symptoms. Pain controlled. Extra strength testing. GUANACO drain decreasing appropriately. Subsequent discharge home. Discharge orders and instructions from the chart for further review. Total Time Total Time Spent Total Time Spent (In Minutes): 20 minutes Discharge Plan Discharge Items Patient Disposition: Home - Self-Care Reason For Visit: Lumbar Disc Herniation with Radiculopathy, Spondyl Discharge Diagnosis: Lumbar spondylolisthesis with radiculopathy Activity: As commented below Non-emergency contact: Primary Care Provider Call non-emergency contact if: you have any medication questions Follow-up/Referrals: [facility] [Non-Staff] - PCP,NO [Physician] - Diet: Regular Addtl Attending Provider Instructions: ACTIVITY RECOMMENDATIONS: SELF CARE INSTRUCTIONS AFTER THORACIC/LUMBAR FUSIONS 1. You may walk to your tolerance. It is good exercise for your legs and back. Expect some back and intermittent leg aches and pains. 2. You may perform "counter-top" level activities (make a sandwich, mendez with a project, etc.). 3. No bending or lifting of more than 10 pounds or back twisting of any nature (roll like a log when turning in bed). 4. You may ride in a car for 20-30 minutes at a time. No driving until after your first visit with your doctor. 5. Frequent changes of position and restricting sitting to 30 minutes at a time will help limit the amount of back spasms and stiffness you may experience. 6. You may discontinue the use of ambulatory aids (cane, crutches, etc.) once your strength and confidence allow. 7. You may superintendent pier the shower and let water strike your incision when you arrive home at least once daily. Do not take a tub bath, sit in a hot tub or go into a swimming pool until after your first recheck in the office. 8. You may resume previous diet. SPECIAL CARE INSTRUCTIONS: VERY IMPORTANT TO READ AND REVIEW A. Your surgical incision has been closed with a cosmetic suture under the skin that will dissolve in about 6 weeks. In 14 days, you can use a pair of clean scissors and cut the suture that is left outside of the skin at the ends of your incision. 1. The small skin tapes can be removed 7 days after surgery if they have not fallen off by that point. 2. You may keep the wound open to air as much as possible to promote healing after post-op day number 5 unless told otherwise by your doctor. 3. If you think the wound looks like it is becoming infected (redness or worsening drainage) and/or you are experiencing fever, chill or worsening back pain and muscle spasms, contact the office so that we may evaluate you as soon as possible. B. Complications are uncommon, but please contact us if you have any signs or symptoms of: 1. wound infection (fever higher than 102.5 degrees F, redness, separation of wound, drainage, or increasing pain from the incision) 2. blood clots in legs (pain, swelling, redness and warmth in legs) 3. urinary tract infection (fever higher than 102.5 degrees F, burning upon urination or increased frequency of urination) 4. nerve problems (inability to walk on your toes or heels, numbness, loss of bowel or bladder control) 5. any other symptoms that concern you C. Please call the office at if you have any concerns or questions about your operation or recovery. D. No smoking! Smoking drastically decreases the chance of a solid fusion. E. Do not take any anti-inflammatory medications (Indocin, Advil, Motrin, Aspirin, Naprosyn, etc.) as these may inhibit the chance of a solid fusion. Tylenol is okay to take for pain. MANAGING PAIN AFTER SPINAL SURGERY 1. Narcotic medication is intended for short-term use and will be provided for surgical pain. Surgical pain usually lasts for a period of 4-6 weeks. Narcotic medication includes Percocet, Vicodin, Darvocet, Tylenol #3 or Lortab. 2. Longer-term pain is more appropriately treated with non-narcotic medication such as Tylenol ES. 3. Muscle spasm is not appropriately treated with narcotics. Muscle relaxers such as Soma, Flexeril or Skelaxin can be used along with Tylenol ES. 4. Remember that we all live with some "aches and pains". This is not unusual or uncommon after an injury or as we get older. a. Back pain is expected and may include muscle spasms for 4 to 6 weeks after surgery. The pain should gradually improve. If the pain worsens for no apparent reason, please contact the office. b. Intermittent leg pain may also be experienced and should not be concerned about unless it worsens for no apparent reason. If so, please contact the office. 5. We will provide appropriate medication within the normal guidelines of their prescribed use. We will also be very cautious and aware of potential abuse and extended duration of patients' medication needs. a. Pain medications are for your comfort and to assist with sleep and rest so that the tissue can heal. They are not provided in order to return to normal activity and should not be used through the day. To do so or worsening pain at night can result from ongoing tissue damage and development of tolerance to the prescribed medicine. 6. Please allow 2-3 days to process refills. Prescriptions will not be mailed but must be picked up at the office. FOLLOW UP VISIT: Keep your scheduled follow-up appointment. Any questions, please call the office at . Pending Studies at Discharge: No Stand-Alone Forms: [facility], Smoking Cessation Medications and DC Order Prescriptions: New tramadol 50 mg tablet 50 mg PO Q6H PRN (Reason: pain, moderate) Qty: 30 0RF oxycodone 5 mg tablet 5 mg PO Q6H PRN (Reason: pain) Qty: 30 0RF Rx Instructions: Oxycodone for severe pain tramadol for moderate pain Continued atorvastatin [Lipitor] 20 mg Tablet 20 mg PO HS trazodone 50 mg Tablet 50 mg PO HS PRN (Reason: Insomnia) omeprazole 40 mg Capsule,Delayed Release(Dr/Ec) 40 mg PO QPM tramadol 50 mg Tablet 50 mg PO BID PRN (Reason: Pain) methocarbamol 750 mg Tablet 750 mg PO TID PRN (Reason: muscle spasms) metoprolol tartrate 50 mg Tablet 100 mg PO BID montelukast [Singulair] 10 mg Tablet 10 mg PO HS albuterol 90 mcg/actuation Aerosol 90 mcg INHALATION Q2H PRN (Reason: Shortness Of Breath Or Wheezing) hydroxychloroquine 200 mg Tablet 200 mg PO BID metformin 500 mg Tablet Extended Release 24 Hr 500 mg PO QPM duloxetine 30 mg Capsule,Delayed Release(Dr/Ec) 30 mg PO HS Rx Instructions: Take with 60mg for total of 90mg duloxetine 60 mg Capsule,Delayed Release(Dr/Ec) 60 mg PO HS Patient Comments: did not take last night due to taking muscle relaxer Rx Instructions: Take with 30mg for total of 90mg Breztri Aerosphere 160-9-4.8 mcg/actuation Hfa Aerosol Inhaler 2 inh INHALATION Q12H Mounjaro 12.5 mg/0.5 mL Pen Injector 12.5 mg SUBCUT WK Rx Instructions: Thursday Tezspire 210 mg/1.91 mL (110 mg/mL) Pen Injector 210 mg SUBCUT MONTHLY Discharge Orders: Discharge Order (Routine); Ordered 07/09/25 Ordered By: Killian Mckeon Admission Data Admit Date/Time: 07/07/25 12:52 Attending Provider: Killian Mckeon Admit Provider: Killian Mckeon Primary Care Provider: Starla Chan Other Providers: [facility]; Alejandro Bar
--- NOTE | 2025-07-09 13:32 | Hospitalist Progress Note ---
Date of Service July 09, 2025 Assessment & Plan (1) Lumbosacral spondylosis with radiculopathy: (2) S/P lumbar spinal fusion: (3) Diabetes mellitus, type 2: (4) Asthma: (5) Hypertension: (6) HLD (hyperlipidemia): (7) Acid reflux: (8) Lupus (systemic lupus erythematosus): Plan 49 year old female with PMH significant for type 2 diabetes (A1C 5.2% in January 2025), hypertension, hyperlipidemia, SLE, GERD, carotid artery stenosis, severe asthma, migraines, urinary retention (normal PVR on bladder US in Jun 2024), depression/anxiety, and lumbosacral spondylosis with radiculopathy who underwent L5-S1 lumbar decompression and fusion on 07/07/[address] Mckeon. We have been consulted for post operative medical management. Lumbosacral spondylosis with radiculopathy -POD#2 L5-S1 lumbar decompression and fusion on 07/07/[address] Mckeon -Activity level, pain control, DVT prophylaxis, bowel regimen, wound/drain care per primary team -Encourage incentive spirometer -patient medically stable for discharge home Type 2 diabetes -BSG ACHS and SSI while inpatient -Glycemic pharmacy consulted Asthma -Home Tezspire restart on discharge -Continue inhalers and montelukast Hypertension -Continue metoprolol tartrate Hyperlipidemia -Continue atorvastatin GERD -Continue PPI Lupus -resume plaquenil on discharge Depression/anxiety -Continue duloxetine and trazodone I spent a total of 35 minutes in direct patient care, including [id number] time with the patient and/or family, reviewing medical records, ordering and reviewing diagnostic tests, and coordinating care with other healthcare providers. This time includes: history taking, physical examination, medical decision making, counseling, ECG interpretation, imaging interpretation, lab interpretation, orders, and education, excluding time spent in the performance of separately billed services. Admission and Anticipated Discharge Date Admission Date: July 07, 2025 Subjective Patient seen and examined at bedside. Patient doing well today, looking forward to going home. Some back pain, adequately treated with prn pain medication. Review of Systems Review of Systems: CONSTITUTIONAL: Patient denies fevers, chills, sweats and weight changes. EYES: Patient denies any visual symptoms. EARS, NOSE, AND THROAT: No difficulties with hearing. No symptoms of rhinitis or sore throat. CARDIOVASCULAR: Patient denies chest pains, palpitations, orthopnea and paroxysmal nocturnal dyspnea. RESPIRATORY: No dyspnea on exertion, no wheezing or cough. GI: No nausea, vomiting, diarrhea, constipation, abdominal pain, hematochezia or melena. : No urinary hesitancy or dribbling. No nocturia or urinary frequency. No abnormal urethral discharge. MUSCULOSKELETAL: some lower back muscular pain, left toe tingling NEUROLOGIC: No chronic headaches, no seizures. Patient denies numbness, tingling or weakness. PSYCHIATRIC: Patient denies problems with mood disturbance. No problems with anxiety. ENDOCRINE: No excessive urination or excessive thirst. DERMATOLOGIC: Patient denies any rashes or skin changes. Physical Exam Physical Exam: Gen: A&O 3 NAD, dressed to go home HEENT: NCAT, EOMI, not icteric. External ears normal. No rhinorrhea. Moist mucous membranes. Neck: Supple, full range of motion, no observable masses, No meningeal sign. Lungs: No Respiratory distress. CV: RRR, no edema. Abdomen: Soft, nondistended, No rebound tenderness. MSK: No joint swelling, no redness. s/p procedure, walking around well Skin: No rashes, petechiae, lesions. Normal color per patient. Neuro: Normal Gait, Grossly intact. Psych: Appropriate for situation. Results & Data Results & Data Vital Signs (Past 12 Hours) Vital Signs Temp Pulse Resp BP Pulse Ox O2 Del Method 07/09/25 10:19 36.4 C L 66 18 112/72 100 07/09/25 07:46 36.4 C L 66 18 112/72 100 Room Air Laboratory Results -personally reviewed, WBC stabilized, Hgb stabilized, creatinine at baseline Medications Administered Atorvastatin Calcium (Atorvastatin 20 Mg Tab) 20 mg PO HS SHIRLEY Stop: 08/06/25 20:59 Last Admin: 07/08/25 21:06 Dose: 20 mg Documented By: Admin: 07/07/25 20:32 Dose: 20 mg Documented By: HOMER Budesonide/Glycopyrr/Formoterol Fum (Budesonide/Glycopyr/Formoterol Inhaler) 2 ea INH BID SHIRLEY Stop: 08/07/25 08:59 Last Admin: 07/09/25 08:00 Dose: 2 ea Documented By: Admin: 07/08/25 21:06 Dose: 2 ea Documented By: Admin: 07/08/25 08:13 Dose: 2 ea Documented By: CHRIS Duloxetine HCl (Duloxetine Hcl 30 Mg Cap) 30 mg PO HS SHIRLEY Stop: 08/06/25 20:59 Last Admin: 07/08/25 21:06 Dose: 30 mg Documented By: Admin: 07/07/25 20:33 Dose: 30 mg Documented By: HOMER Duloxetine HCl (Duloxetine Hcl 60 Mg Cap) 60 mg PO HS SHIRLEY Stop: 08/06/25 20:59 Last Admin: 07/08/25 21:06 Dose: 60 mg Documented By: Admin: 07/07/25 20:32 Dose: 60 mg Documented By: HOMER Fluticasone Furoate (Fluticasone Furoate 200mcg 14 Puffs/Inhaler) 1 puffs INH DAILY SHIRLEY Stop: 08/07/25 08:59 Last Admin: 07/09/25 08:00 Dose: 1 puffs Documented By: Admin: 07/08/25 08:15 Dose: 1 puffs Documented By: CHRIS Dexamethasone 8 mg/ Syringe 2 mls @ 1 mls/min IV DAILY SHIRLEY Stop: 07/10/25 09:01 Last Admin: 07/09/25 08:10 Dose: Not Given Documented By: Admin: 07/08/25 08:13 Dose: 1 mls/min Documented By: CHRIS Insulin Aspart (Insulin Aspart Per Unit Charge) 0 units SC ACHS SHIRLEY Stop: 08/06/25 16:29 Last Admin: 07/09/25 12:17 Dose: 6 units Documented By: CHRIS Co-signed By: BRENDA Admin: 07/09/25 07:59 Dose: 6 units Documented By: CHRIS Co-signed By: VIKTORIYA Admin: 07/08/25 23:21 Dose: Not Given Documented By: Admin: 07/08/25 17:57 Dose: 8 units Documented By: CHRIS Co-signed By: BRENDA Admin: 07/08/25 12:15 Dose: 3 units Documented By: CHRIS Co-signed By: STEFANO Admin: 07/08/25 08:12 Dose: 5 units Documented By: CHRIS Co-signed By: GURJIT Admin: 07/07/25 21:30 Dose: Not Given Documented By: HOMER Co-signed By: MYLENE Admin: 07/07/25 17:11 Dose: 6 units Documented By: ALONSO Co-signed By: RRMisbah Melatonin (Melatonin 3 Mg Tab) 3 mg PO HS PRN PRN Reason: Sleep Stop: 08/08/25 02:54 Last Admin: 07/09/25 03:05 Dose: 3 mg Documented By: HOMER Metoprolol Tartrate (Metoprolol Tartrate 100 Mg Tab) 100 mg PO BID SHIRLEY Stop: 08/06/25 20:59 Last Admin: 07/09/25 08:00 Dose: 100 mg Documented By: Admin: 07/08/25 21:09 Dose: 100 mg Documented By: Admin: 07/08/25 08:14 Dose: 100 mg Documented By: Admin: 07/07/25 20:36 Dose: 100 mg Documented By: HOMER Montelukast Sodium (Montelukast Sodium 10 Mg Tablet) 10 mg PO HS SHIRLEY Stop: 08/06/25 20:59 Last Admin: 07/08/25 21:07 Dose: 10 mg Documented By: Admin: 07/07/25 20:33 Dose: 10 mg Documented By: HOMER Oxycodone HCl (Oxycodone Hcl Ir 5 Mg Tab (Immediate Release)) 5 - 10 mg PO Q4H PRN PRN Reason: MOD/SEV Pain & Pre PT Stop: 07/21/25 14:19 Last Admin: 07/09/25 13:05 Dose: 10 mg Documented By: Admin: 07/09/25 02:44 Dose: 10 mg Documented By: Admin: 07/08/25 21:09 Dose: 10 mg Documented By: Admin: 07/08/25 11:32 Dose: 10 mg Documented By: Admin: 07/08/25 04:30 Dose: 10 mg Documented By: Admin: 07/08/25 00:27 Dose: 10 mg Documented By: Admin: 07/07/25 20:37 Dose: 10 mg Documented By: Admin: 07/07/25 16:20 Dose: 10 mg Documented By: ALONSO Pantoprazole Sodium (Pantoprazole 40 Mg Tab) 40 mg PO DAILY SHIRLEY Stop: 08/07/25 08:59 Last Admin: 07/09/25 08:00 Dose: 40 mg Documented By: Admin: 07/08/25 08:14 Dose: 40 mg Documented By: CHRIS Polyethylene Glycol (Polyethylene (Miralax) 17 Gm Pack) 17 gm PO Q6 SHIRLEY Stop: 08/07/25 05:59 Last Admin: 07/09/25 11:43 Dose: Not Given Documented By: Admin: 07/09/25 05:50 Dose: 17 gm Documented By: Admin: 07/08/25 21:07 Dose: 17 gm Documented By: Admin: 07/08/25 17:57 Dose: 17 gm Documented By: Admin: 07/08/25 12:16 Dose: 17 gm Documented By: Admin: 07/08/25 05:50 Dose: 17 gm Documented By: HOMER Senna/Docusate Sodium (Docusate Sodium/Senna 50/8.6mg Tab) 2 tab PO HS SHIRLEY Stop: 08/06/25 20:59 Last Admin: 07/08/25 21:06 Dose: 2 tab Documented By: Admin: 07/07/25 20:32 Dose: 2 tab Documented By: HOMER Tramadol HCl (Tramadol Hcl 50 Mg Tablet) 50 - 100 mg PO Q4H PRN PRN Reason: MOD/SEV Pain & Pre PT Stop: 08/06/25 14:19 Last Admin: 07/09/25 07:59 Dose: 50 mg Documented By: Admin: 07/08/25 18:00 Dose: 100 mg Documented By: Admin: 07/08/25 08:25 Dose: 50 mg Documented By: Admin: 07/07/25 23:03 Dose: 100 mg Documented By: HOMER
--- NOTE | 2025-07-11 08:49 | Coding Query ---
CODING QUERY To promote full compliance with coding requirements relating to patient care, provider participation is requested in all cases of mold carpenter uncertainty. Please assist us with the question(s) below: Coding Question(s): The Operative Report documents under Actual Procedures, " #6 placement locally harvested morselized autograft and posterior gutters", and the body of the report documents, "The transverse processes of L5-S1 burred to subcortical bone. Koros combined with Proteus and locally harvested morselized allograft placed in the posterior gutters". Please specify below, regarding documentation of morselized autograft or allograft used: ( x ) morselized autograft ( ) morselized allograft ( ) Other: Please Specify Physician's Response(s): Thank you Halle Palmer Principal Diagnosis: "that condition established after study, to be chiefly responsible for occasioning the admission of the patient to the hospital for care." Co-Existing Principal Diagnosis: "when two or more diagnoses equally meet the criteria for principal diagnosis as determined by the circumstances of admission, diagnostic work up, and/or therapy provided, and the Alphabetic Index, Tabular List, or another coding guideline does not provide sequencing direction, any one of the diagnoses may be sequenced first." "When the physician has documented what appears to be a current diagnosis in the body of the record, but has not included the diagnosis in the final diagnostic statement, the physician should be asked whether the diagnosis should be added." (Source [facility] 2 QTR90. p3-4) BETHANY
--- NOTE | 2025-07-11 08:57 | Coding Query ---
CODING QUERY To promote full compliance with coding requirements relating to patient care, provider participation is requested in all cases of curtain stitcher uncertainty. Please assist us with the question(s) below: Coding Question(s): There are diagnoses of lumbar spondylolisthesis with radiculopathy, lumbar disc herniation with radiculopathy, lumbosacral spondylosis with radiculopathy and, there is documentation on the H&P, and on the 06/15/25 Anesthesia Consult, and the 07/07/25 Consultation in the Medical History of, "Work related injury DOI 08/17/24 - reason for procedure 07/07/25". Please specify below, regarding the diagnoses, to determine if they are work related injury/ies: (x ) All of the diagnoses are work related injuries ( ) None of the diagnoses are work related injuries ( ) some of the diagnoses are work related injures. Please specify any diagnosis/es that are work related injury/ies: Physician's Response(s): Thank you Halle Palmer Principal Diagnosis: "that condition established after study, to be chiefly responsible for occasioning the admission of the patient to the hospital for care." Co-Existing Principal Diagnosis: "when two or more diagnoses equally meet the criteria for principal diagnosis as determined by the circumstances of admission, diagnostic work up, and/or therapy provided, and the Alphabetic Index, Tabular List, or another coding guideline does not provide sequencing direction, any one of the diagnoses may be sequenced first." "When the physician has documented what appears to be a current diagnosis in the body of the record, but has not included the diagnosis in the final diagnostic statement, the physician should be asked whether the diagnosis should be added." ([facility] 2 QTR90. p3-4) BETHANY
== END 2025-07-09 14:13 | disposition home or self-care (01) | DRG 402 ==
LOC: ASU 09:14 → 3E 12:52